=== PATIENT | male | born 1990 | race Caucasian/White ===

== ENCOUNTER 2016-07-03 14:53 | Emergency (ER) | payer MEDICAID, OTHER ==
[~2016-07-03] VITALS: Ht 175.3 cm; Wt 72.1 kg
[2016-07-03 16:00] VITALS: BP 121/68
== END 2016-07-03 16:10 | disposition home or self-care (01) ==
LOC: ER 14:58
DX: S00.85XA Superficial foreign body of other part of head, initial encounter (principal); J02.9 Acute pharyngitis, unspecified; X58.XXXA Exposure to other specified factors, initial encounter; Y93.89 Activity, other specified; Y99.8 Other external cause status; Y92.89 Other specified places as the place of occurrence of the external cause